=== PATIENT | male | born 1965 | race African-American/Black ===

== ENCOUNTER 2016-08-04 19:33 | Emergency (ER) | payer MEDICAID ==
[2015-10-31 07:28] VITALS: BMI 37.0
[~2016-08-04 19:33] MED LIST: BAYER CHEWABLE81 MG PO; BETAPACE 120 M120 MG PO; BRILINTA90 MG PO; COREG6.25 MG PO; DIABETA5 MG PO; DUONEB 2.5-0.5 M3 ML; ELIQUIS2.5 MG PO; FUROSEMIDE20 MG PO; GLUCOPHAGE1000 MG PO; HYDROCODONE-APA1 TAB PO; INVOKANA100 MG PO; KLOR-CON 88 MEQ PO; LIPITOR40 MG PO; LISINOPRIL10 MG PO; NEURONTIN 400400 MG PO; PLAVIX75 MG PO; PRAVACHOL40 MG PO; VASERETIC 10-251 TAB PO; VASOTEC20 MG PO
== END 2016-08-04 20:40 | disposition home or self-care (01) ==
LOC: D.ER 19:33
DX: S39.012A Strain of muscle, fascia and tendon of lower back, initial encounter (principal); X58.XXXA Exposure to other specified factors, initial encounter; Y93.89 Activity, other specified; Y92.89 Other specified places as the place of occurrence of the external cause; I50.9 Heart failure, unspecified; E11.9 Type 2 diabetes mellitus without complications; I10 Essential (primary) hypertension

== ENCOUNTER 2016-11-20 20:03 | Emergency (ER) | payer MEDICAID ==
[2015-10-31 07:28] VITALS: BMI 37.0
== END 2016-11-20 22:15 | disposition home or self-care (01) ==
LOC: D.ER 20:03
DX: M25.562 Pain in left knee (principal); I50.9 Heart failure, unspecified; E11.9 Type 2 diabetes mellitus without complications; I10 Essential (primary) hypertension

== ENCOUNTER 2016-11-28 21:49 | Emergency (ER) | payer MEDICAID ==
[2015-10-31 07:28] VITALS: BMI 37.0
== END 2016-11-28 23:19 | disposition home or self-care (01) ==
LOC: D.ER 21:49
DX: M17.12 Unilateral primary osteoarthritis, left knee (principal); M25.562 Pain in left knee; I50.9 Heart failure, unspecified; E11.9 Type 2 diabetes mellitus without complications; I10 Essential (primary) hypertension

== ENCOUNTER → 2016-12-25 21:21 | Outpatient (CLI) | payer MEDICAID ==
[2015-10-31 07:28] VITALS: BMI 37.0
== END | disposition home or self-care (01) ==
LOC: D.LABREF 21:21
DX: M17.12 Unilateral primary osteoarthritis, left knee (principal); Z11.8 Encounter for screening for other infectious and parasitic diseases

== ENCOUNTER 2017-01-13 10:00 | Inpatient (IN) | payer MEDICAID ==
[~2017-01-13 10:00] MED LIST changes: -FUROSEMIDE20 MG PO; +LASIX20 MG PO
[2017-01-13 11:31] LABS: BASOPHILS 0.2 % (0-2); EOSINOPHILS 1.5 % (0-7); HEMATOCRIT 36.7 % (42.0-54.0); HEMOGLOBIN 11.8 g/dL (13.5-17.5); IMMATURE GRANULOCYTES 0.2 % (0-5); LYMPHOCYTES 28.8 % (15-50); MCH 26.6 pg (26.0-34.0); MCHC 32.2 g/dL (31.0-37.0); MCV 82.8 fL (80.0-100.0); MONOCYTES 5.9 % (2-11); NEUTROPHILS 63.4 % (40-80); RBC 4.43 10x6/uL (4.20-6.10); RDW 15.1 % (11.5-14.5); WBC 6.1 10x3/uL (4.8-10.8)
[2017-01-13 11:35] LABS: PLATELET COUNT 213 10x3/uL (130-400)
[2017-01-13 11:36] LABS: APPEARANCE CLEAR (CLEAR); COLOR YELLOW (YELLOW); GLUCOSE 1000 mg/dL (NEGATIVE); NITRITE NEGATIVE (NEGATIVE); PROTEIN NEGATIVE (NEGATIVE); SPECIFIC GRAVITY 1.015 (1.005-1.020)
[2017-01-13 11:37] LABS: BILIRUBIN NEGATIVE (NEGATIVE); KETONE NEGATIVE (NEGATIVE); UROBILINOGEN NORMAL (NORMAL)
[2017-01-13] MEDS ORDERED: BETAPACE 80 MG80 MG PO (11:42)
[2017-01-13 11:43] LABS: APTT 29.2 SECONDS (22.8-39.4); INR 1.04 (0.85-1.17); PROTIME 13.5 SECONDS (11.6-15.0)
[2017-01-13] MEDS ORDERED: ZANAFLEX4 MG PO (11:45)
[2017-01-13 12:03] LABS: ANION GAP 15.7 mmol/L (8-16); CALCIUM 9.6 mg/dL (8.5-10.1); CARBON DIOXIDE 28.6 mmol/L (21.0-32.0); CREATININE - SERUM 1.4 mg/dL (0.6-1.3); POTASSIUM - SERUM 4.3 mmol/L (3.5-5.1)
[2017-01-18] MEDS ORDERED: OXYCONTIN10 MG PO (07:30)
[2017-01-18 07:33] VITALS: BP 147/78; BMI 37.5
--- NOTE | 2017-01-18 10:30 | NUR ---
0800 BLOOD SUGAR CHECKED AND RESULTED 335. THEREFORE IT WAS REPEATED AND RESULTED 330. ANESTHESIA NOTIFIED AT THIS TIME. INSULIN TO BE GIVEN.
--- NOTE | 2017-01-18 10:31 | NUR ---
0840 RECHECKED BLOOD SUGAR AT THIS TIME. RESULT WAS 275. DR. MELÉNDEZ NOTIFIED AND NO INTERVENTIONS NEEDED AT THIS TIME. WILL CONTINUE TO MONITOR.
[2017-01-18 12:22] VITALS: BP 142/68
--- NOTE | 2017-01-18 12:24 | NUR ---
RECIEVED TO ROOM 2209 VIA BED FROM RECOVERY ROOM S/P TOTAL LEFT KNEE REPLACEMENT PER DR JASON PT AROUSES TO VERBAL STIMULI. VS WNL ORIENTED TO ROOM AND CL SYSTEM. SDC TO RIGHT LEG APPLIED AND FUNCTIONAL BED ALARM ON FOR GLORY
[2017-01-18 12:33] VITALS: BP 142/68; BMI 37.5
--- NOTE | 2017-01-18 14:44 | OP ---
PATIENT NAME: HEIDI GAGNON MEDICAL RECORD: [id number] :67 LOCATION:D.[facility] ADMISSION DATE:01/18/17 SURGEON: CANDY JASON MD DATE OF OPERATION: 01/18/2017 PREOPERATIVE DIAGNOSIS: Degenerative arthritis of the left knee. POSTOPERATIVE DIAGNOSIS: Degenerative/inflammatory arthritis of the left knee. PROCEDURE: Left total knee arthroplasty. SURGEON: Candy Jason MD ANESTHESIA: General. INTRAOPERATIVE COMPLICATIONS: None. SUMMARY OF PATHOLOGIC FINDINGS: The patient had a combination of both severe inflammatory as well as degenerative arthritis with findings that could be consistent with pseudogout. IMPLANTS USED: [employer] triathlon total knee arthroplasty system, size 5 distal femur, non-polyethylene insert, 5 tibial baseplate, and a 36 patellar component. OPERATIVE SUMMARY IN DETAIL: After obtaining the appropriate orthopedic surgery consent as well as anesthetic consultation, evaluation and clearance, the patient was brought to the operating room and placed on the operating room table in supine position. After adequate general laryngeal mask airway was administered, tourniquet was placed about the proximal aspect of the left lower extremity. Left lower extremity was then prepped and draped in routine sterile fashion. Leg was elevated, exsanguinated, and tourniquet inflated to 350 mmHg. Routine midline incision was taken down for paramedian arthrotomy. Patella was everted, findings above were noted. Copious amounts of the pure white caseous type material were removed from about the patella and on the lateral aspect of the medial and lateral gutter. Soft tissue excision was done in the usual fashion. Intramedullary guide hole was created for intramedullary guided distal femoral cut. Distal femoral cut was made. This was followed by complete exposure of the proximal tibia. Soft tissue excision was finished and then the proximal tibia was repaired with a guide hole for intramedullary guided cutting. The proximal tibia was cut. Measurements were taken. Chamfer cuts were made on the distal femur. Having completed this, trials were put into place, taken through range of motion and found to be stable in all planes corresponding to the above-mentioned final implants. Final distal femoral and proximal tibial preparations were made. This was followed by excision of the articular aspect of the patella for patellar resurfacing. Final patellar resurfacing preparations were made. At this point, the knee was irrigated in pulsatile lavage fashion to clear the knee of all debris. Final components were cemented into place. All excess cement was removed. After the cement was allowed to harden, the knee was taken through range of motion and found to be stable in all planes. Paramedian arthrotomy was closed with #2 Ethibond, followed by #1 Vicryl, 2-0 Vicryl and skin austin. Sterile dressings were applied. Tourniquet was deflated. The patient was awakened, taken to recovery room in stable condition. All final needle and sponge counts were correct. TRANSINT:[id number] Voice Confirmation ID: [id number] DOCUMENT ID: [id number] OPERATIVE REPORT [id number] HEIDI GAGNON MD, CANDY RHODES at 1444 CC: [id number] DICTATION DATE: 01/18/17 1131 SALVAGER: 01/18/17 1153 ADM IN [facility] [address] [id number]
--- NOTE | 2017-01-18 16:40 | NUR ---
PT RESTING WELL IN BED ROUSES TO VERBAL STIMULI NO DISTRESS
--- NOTE | 2017-01-18 18:19 | NUR ---
CPM IN PLACE PT REQUESTED AND RECIEVED NORCO PER ORDER WILL MONITOR
--- NOTE | 2017-01-18 19:13 | NUR ---
PT IS LYIN IN BED WITH HOB AT 25 DEGREES. PT STATED THAT KNEE IS HURTING, PT LEFT LEG IS IN CPM MACHINE BUT MACHINE IS NOT STRAIGHT AND LEG WAS NOT ALIGNED, PT KNEE WAS TURNED SIDEWAYS, USED TOWEL TO BRACE KNEE AND KEEP STRAIGHT AND HAD ASSISTANCE PULLING PATIENT UP IN BED. PT STATED FELT A LITTLE BETTER, DAY NURSE JUST ADMINISTERED PAIN MED WILL CHECK BACK IN 2 HOURS. BED IS IN LOW POSITION, CALL LIGHT IN REACH PT SPOUSE AT BEDSIDE
[2017-01-18 22:27] VITALS: BP 141/78
[2017-01-19] VITALS: BP 153/75
--- NOTE | 2017-01-19 02:00 | NUR ---
PT RESTING IN BED WITH NO DISTRESS. RESPIRATIONS EVEN AND UNLABORED. SIDE RAILS X 2. BED IS LOW. CALL LIGHT WITHIN REACH.
[2017-01-19 04:00] VITALS: BP 140/83
[2017-01-19 04:07] LABS: BASOPHILS 0.1 % (0-2); EOSINOPHILS 1.1 % (0-7); HEMATOCRIT 32.3 % (42.0-54.0); HEMOGLOBIN 10.4 g/dL (13.5-17.5); IMMATURE GRANULOCYTES 0.1 % (0-5); LYMPHOCYTES 13.6 % (15-50); MCH 26.4 pg (26.0-34.0); MCHC 32.2 g/dL (31.0-37.0); MEAN PLATELET VOLUME 9.2 fL (7.4-10.4); MONOCYTES 10.6 % (2-11); NEUTROPHILS 74.5 % (40-80); PLATELET COUNT 183 10x3/uL (130-400); RBC 3.94 10x6/uL (4.20-6.10)
[2017-01-19 04:54] LABS: ALBUMIN 3.1 g/dL (3.4-5.0); ANION GAP 12.3 mmol/L (8-16); BILIRUBIN - TOTAL 0.55 mg/dL (0.2-1.3); CALCIUM 9.3 mg/dL (8.5-10.1); CARBON DIOXIDE 28.4 mmol/L (21.0-32.0); CREATININE - SERUM 1.5 mg/dL (0.6-1.3); POTASSIUM - SERUM 4.7 mmol/L (3.5-5.1); PROTEIN - SERUM 8.5 g/dL (6.4-8.2)
--- NOTE | 2017-01-19 07:45 | NUR ---
PT ASSESSMENT COMPLETE NO DISTRESS NOTED VOICES ALL NEEDS OT STAFF PT WITH CALL ANNEMARIE INREACH DRESSING TO LEFT KNEE CDI
[2017-01-19 08:34] VITALS: BP 147/79
--- NOTE | 2017-01-19 09:50 | NUR ---
PT RESTING IN CHAIR AT BEDSIDE NO DISTRESS NOTED FAMILY AT SIDE
[2017-01-19 11:45] VITALS: BP 145/86
--- NOTE | 2017-01-19 12:45 | NUR ---
PT UP AMBULATING WITH THERAPY VAGAL RESPONSE NOTED SEATED TO CHAIR AND PT DIAPHORESIS SLOWED AND BREATHING REGULATED RETURNED TO BED PER THERAPY STAFF
--- NOTE | 2017-01-19 15:59 | NUR ---
Patient Name: HEIDI GAGNON Admission Status: Elective Accout number: [id number] Admission Date: 01-18-2017 : 1965 Admission Diagnosis: Attending: CANDY JASON Current LOS: 1 Anticipated DC Date: Planned Disposition: Home with Home Health Primary Insurance: [place] [employer] [facility] Discharge Planning Comments: CM met with patient and girlfriend (Nena) to assess discharge planning needs. Patient stated that he is partial dependent with his ADL's, he needs assistance with his bathing. He stated that Nena helps him. Patient has a cane but will need a walker at discharge. CM will set that up prior to discharge. Patient would like to uses [facility] for PT. CM will set that up as well. Patient does not have any stairs to enter in his home. CM will continue to follow and assist with discharge planning needs, PCP: Blake gross Grand Nena Varghese ([phone]) Veterinary Meat Inspector: Lizette Sims * Is the patient Alert and Oriented? Yes 0 * How many steps to enter\exit or inside your home? 0 0 * PCP BLAKE 0 * Pharmacy [facility] 0 * Preadmission Environment Home with Family 0 * ADLs Partial Dependent 0 * Partial ADLs (Assistance needed) Bathing 0 * Equipment Cane 0 * List name and contact numbers for known caregivers / representatives who currently or will assist patient after discharge: NENA VARGHESE [phone] * Community resources currently utilized None 0 * Additional services required to return to the preadmission environment? Yes 0 * Can the patient safely return to the preadmission environment? Yes 0 * Has this patient been hospitalized within the prior 30 days at any hospital? No 0 Grand Total: 0
[2017-01-19 16:07] VITALS: BP 125/75
--- NOTE | 2017-01-19 18:45 | NUR ---
PT CPM IN PLACE PER STAFF ASSIST.
--- NOTE | 2017-01-19 19:33 | NUR ---
PT IS LYING IN BED WITH CPM MACHINE ON, STATED HAD WALKED WITH PT TODAY BUT THEN GOT DIZZY, SP STATED PT HAD A SLIGHT FEVER, PT STATED PAIN AT A 10, LAST PAIN MED WAS GIVEN AT 6 ADVISED WOULD HAVE TO WAIT A BIT LONGER BEFORE NEXT DOSE CAN BE ADMINISTERED. PT BED IN LOW POSITION CALL LIGHT IN REACH, NO SIGNS OF DISTRESS, CONTINUE WITH CARE PLAN
[2017-01-19 20:00] VITALS: BP 133/66
[2017-01-20] VITALS: BP 125/64
--- NOTE | 2017-01-20 00:28 | NUR ---
MARCIAL HAMILTON CAME TO INOFRM ME PT TEMP IS 101. GAVE PT TYLENOL 650MG, REASSESS PT TEMP IN 30MINUTES.
--- NOTE | 2017-01-20 02:00 | NUR ---
PT IN BED WITH NO DISTRESS. RESPIRATIONS EVEN AND UNLABORED. SIDE RAILS X 2. BED LOW. CALL LIGHT IN REACH.
--- NOTE | 2017-01-20 02:21 | NUR ---
RECHECKED PT TEMP AND PT IS STILL RUNNING SLIGHT FEVER OF 100.3, PLACED COLD RAG ON PT'S HEAD
[2017-01-20 04:57] LABS: BASOPHILS 0.1 % (0-2); EOSINOPHILS 1.9 % (0-7); HEMATOCRIT 30.2 % (42.0-54.0); HEMOGLOBIN 9.6 g/dL (13.5-17.5); IMMATURE GRANULOCYTES 0.3 % (0-5); LYMPHOCYTES 18.4 % (15-50); MCH 26.2 pg (26.0-34.0); MCHC 31.8 g/dL (31.0-37.0); MCV 82.5 fL (80.0-100.0); MEAN PLATELET VOLUME 9.1 fL (7.4-10.4); MONOCYTES 9.3 % (2-11); PLATELET COUNT 172 10x3/uL (130-400); RBC 3.66 10x6/uL (4.20-6.10); RDW 14.8 % (11.5-14.5); WBC 7.6 10x3/uL (4.8-10.8)
[2017-01-20 05:08] LABS: CALCIUM 9.3 mg/dL (8.5-10.1); CARBON DIOXIDE 29.9 mmol/L (21.0-32.0); CREATININE - SERUM 1.8 mg/dL (0.6-1.3); POTASSIUM - SERUM 4.9 mmol/L (3.5-5.1)
--- NOTE | 2017-01-20 07:14 | NUR ---
LETHARGIC, BUT AROUSABLE AT THIS TIME. OXYGEN ON 2L VIA NC. ENCOURAGED USE OF INCENTIVE SPIROMETER. BED ALARM AND CPM ON. SRX2 WITH BED IN LOWEST POSITION WITH WHEELS LOCKED. CALL LIGHT IN REACH, WILL CONTINUE WITH PLAN OF CARE.
[2017-01-20 07:53] VITALS: BP 104/55
--- NOTE | 2017-01-20 08:42 | NUR ---
SCHEDULED MEDICATIONS ADMINISTERED AT THIS TIME. TAKEN WITHOUT DIFFICULTY. INCENTIVE SPIROMETER IN USE WITH 2,000ML OF INSPIRATORY VOLUME. CALL LIGHT IN REACH, WILL CONTINUE WITH PLAN OF CARE.
--- NOTE | 2017-01-20 09:17 | NUR ---
PRN PERCOCET ADMINISTERED AT THIS TIME.
[2017-01-20 12:00] VITALS: BP 74/45
--- NOTE | 2017-01-20 12:04 | NUR ---
BP 74/45 AND HEART RATE 110. 500ML FLUID BOLUS INITIATED PER DR LOZANO'S ORDER.
--- NOTE | 2017-01-20 12:50 | NUR ---
FLUID BOLUS COMPLETE AT THIS TIME AND BP 104/56 AND HEART RATE 110.
--- NOTE | 2017-01-20 14:20 | NUR ---
PRN PERCOCET-5 ADMINISTERED FOR PAIN. SPOKE WITH DARRIN COTTON ABOUT DECREASING DOSE DUE TO LETHARGY.
[2017-01-20 16:35] VITALS: BP 117/69
--- NOTE | 2017-01-20 18:37 | NUR ---
COUGHED UP LARGE AMOUNT OF THICK, YELLOW/TANNISH PHLEGM.
[2017-01-20 20:00] VITALS: BP 112/60
--- NOTE | 2017-01-21 01:21 | NUR ---
UPON ENTERING ROOM, PATIENT RESTING QUIETLY WITH EYES CLOSED. NO SIGNS OF DISTRESS NOTED. PATIENT HAS A SHEET OVER HIM, NO BLANKET. CHECKED TEMPERATURE, 101.3 ORALLY. ENCOURAGED PATIENT TO USE INCENTIVE SPIROMETER.
[2017-01-21 04:00] VITALS: BP 148/81
--- NOTE | 2017-01-21 05:03 | NUR ---
CPM ON LEFT LEG, 50 DEGREE ANGLE.
--- NOTE | 2017-01-21 07:10 | NUR ---
AWAKE AND ALERT AT THIS TIME WITH RESPIRATIONS EVEN AND NON LABORED. AT BEDSIDE. CPM AND SCD'S ON AND IN WORKING ORDER. CALL LIGHT IN REACH, WILL CONTINUE WITH PLAN OF CARE.
[2017-01-21 08:14] VITALS: BP 113/65
[2017-01-21 08:36] LABS: BASOPHILS 0.1 % (0-2); HEMATOCRIT 27.5 % (42.0-54.0); HEMOGLOBIN 8.9 g/dL (13.5-17.5); IMMATURE GRANULOCYTES 0.4 % (0-5); LYMPHOCYTES 17.9 % (15-50); MCH 26.5 pg (26.0-34.0); MCHC 32.4 g/dL (31.0-37.0); MCV 81.8 fL (80.0-100.0); MEAN PLATELET VOLUME 9.2 fL (7.4-10.4); MONOCYTES 7.3 % (2-11); NEUTROPHILS 72.3 % (40-80); PLATELET COUNT 191 10x3/uL (130-400); RBC 3.36 10x6/uL (4.20-6.10); RDW 14.7 % (11.5-14.5); WBC 7.8 10x3/uL (4.8-10.8)
--- NOTE | 2017-01-21 08:47 | NUR ---
SCHEDULED MEDICATIONS ADMINISTERED WELL PRN ULTRAM FOR PAIN. IV TO RIGHT HAND PATENT. REMAINS AT BEDSIDE AND CALL LIGHT IN REACH. WILL CONTINUE WITH PLAN OF CARE.
[2017-01-21 08:49] LABS: ALBUMIN 2.8 g/dL (3.4-5.0); BILIRUBIN - TOTAL 0.7 mg/dL (0.2-1.3); CALCIUM 9.4 mg/dL (8.5-10.1); CARBON DIOXIDE 30.1 mmol/L (21.0-32.0); CREATININE - SERUM 1.9 mg/dL (0.6-1.3); POTASSIUM - SERUM 5.1 mmol/L (3.5-5.1); PROTEIN - SERUM 8.2 g/dL (6.4-8.2)
--- NOTE | 2017-01-21 12:16 | NUR ---
REMAINS UP IN CHAIR. DENIES NEEDS AT THIS TIME. CALL LIGHT IN REACH, WILL CONTINUE WITH PLAN OF CARE.
[2017-01-21 12:45] VITALS: BP 133/79
--- NOTE | 2017-01-21 14:47 | NUR ---
PRN PERCOCET AND TORADOL ADMINISTERED TOGETHER AT THIS TIME FOR PAIN 10/10 PER ORDERS FROM LULA HARDY APN. PT IN TEARS WITH PAIN. ICE PACK APPLIED TO LEFT KNEE.
[2017-01-21 16:25] VITALS: BP 146/85
[2017-01-21 20:00] VITALS: BP 145/84
[2017-01-22] VITALS: BP 118/73
[2017-01-22 04:00] VITALS: BP 167/78
--- NOTE | 2017-01-22 07:20 | NUR ---
AWAKE AND ALERT. COMPLAINS THAT KNEE PAIN IS 10/10 AND RIGHT KNEE HURTS WELL. FIANCE AT BEDISDE. CALL LIGHT IN REACH AND BED ALARM ON. PT REFUSES CPM HE SAYS THAT IT "DOES NOT FIT PROPERLY."
--- NOTE | 2017-01-22 07:32 | NUR ---
PRN TRAMADOL ADMINISTERED AND ICE PACK APPLIED TO LEFT KNEE.
[2017-01-22 08:07] VITALS: BP 179/96
[2017-01-22 08:17] LABS: BASOPHILS 0.3 % (0-2); HEMATOCRIT 29.4 % (42.0-54.0); HEMOGLOBIN 9.8 g/dL (13.5-17.5); IMMATURE GRANULOCYTES 0.5 % (0-5); LYMPHOCYTES 17.8 % (15-50); MCH 26.8 pg (26.0-34.0); MCHC 33.3 g/dL (31.0-37.0); MCV 80.3 fL (80.0-100.0); MEAN PLATELET VOLUME 8.9 fL (7.4-10.4); MONOCYTES 11.2 % (2-11); NEUTROPHILS 68.2 % (40-80); PLATELET COUNT 216 10x3/uL (130-400); RBC 3.66 10x6/uL (4.20-6.10); RDW 14.6 % (11.5-14.5); WBC 6.6 10x3/uL (4.8-10.8)
[2017-01-22 08:42] LABS: ALBUMIN 2.8 g/dL (3.4-5.0); BILIRUBIN - TOTAL 0.61 mg/dL (0.2-1.3); CALCIUM 10.1 mg/dL (8.5-10.1); CARBON DIOXIDE 27.5 mmol/L (21.0-32.0); PROTEIN - SERUM 8.9 g/dL (6.4-8.2)
[2017-01-22 08:47] LABS: ANION GAP 15.8 mmol/L (8-16); CREATININE - SERUM 1.4 mg/dL (0.6-1.3); POTASSIUM - SERUM 4.3 mmol/L (3.5-5.1)
--- NOTE | 2017-01-22 08:56 | NUR ---
PRN PERCOCET ADMINISTERED AT THIS TIME FOR PAIN 10/.
[2017-01-22 11:55] VITALS: BP 173/92
--- NOTE | 2017-01-22 12:14 | NUR ---
PRN PERCOCET ADMINISTERED AT THIS TIME FOR PAIN 01/26. DOSE INCREASED PER ORDER.
[2017-01-22 16:00] VITALS: BP 153/74
--- NOTE | 2017-01-22 18:03 | NUR ---
REFUSING CPM AT THIS TIME.
--- NOTE | 2017-01-22 19:15 | NUR ---
RECEIVED CARE FROM DAY NURSE. PT IN BED. REPORTS NO NEEDS. CALL LIGHT AT SIDE. IV TO RIGHT HAND SL. BSC AND WALKER WITHIN REACH.
[2017-01-22 20:00] VITALS: BP 178/89
--- NOTE | 2017-01-22 21:03 | NUR ---
C/O OF IV IN RIGHT HAND NOT ANY GOOD AND NEEDS TO COME OUT. DC'D WITH TIP INTACT. WILL RESITE IN AM FOR IV ROCEPHIN.
--- NOTE | 2017-01-22 23:40 | NUR ---
ASSESSED, PT IS AWAKE WATCHING TV. HE HAS HAD KNEE SURGERY AND THE CPM MACHINE IS AT THE BEDSIDE. MEDS TAKEN ORDERED. THE BED IS LOW, RAILS UP X'S 2 WITH THE CALL LIGHT AT HAND.
[2017-01-23] VITALS: BP 137/81
--- NOTE | 2017-01-23 01:17 | NUR ---
PT RESTING QUITLY. RESP EVEN AND UNLABORED. COMPANY AT SIDE. CALL LIGHT AT SIDE. WILL CONTINUE TO MONITOR.
[2017-01-23 04:00] VITALS: BP 157/84
--- NOTE | 2017-01-23 05:59 | NUR ---
IV SITED TO LEFT WRIST. 22 GAGUGE X1 STICK WITH GOOD BLOOD RETURN NOTED.
--- NOTE | 2017-01-23 07:00 | NUR ---
PT REC'D FROM [facility]. RESTING IN BED WITH FAMILY MEMBER AT BEDSIDE. AAOX4. NO CURRENT COMPLAINTS OF PAIN. DRESSING TO L KNEE CDI. +1 PITTING EDEMA NOTED BELOW BANDAGE. LUNG SOUNDS CLEAR AND EQUAL BILAT. REGULAR HEART RATE AND RHYTHM. BED LOW, CALL LIGHT IN REACH, DENIES NEEDS. CPOC.
[2017-01-23 08:07] VITALS: BP 162/85
--- NOTE | 2017-01-23 08:35 | NUR ---
MORNING MEDS PASSED AT THIS TIME. PRN PAIN MEDICATION ADMINISTERED DUE TO PT COMPLAINTS OF 8/10 R KNEE PAIN. WILL REASSESS. GISSELLE COTTON, AT BEDSIDE DISCUSSING DISCHARGE INSTRUCTIONS. PIV TO L WRIST FLUSHED WITH 10 CC'S OF SALINE. NO COMPLAINTS OF PAIN AND NO SWELLING NOTED TO SITE. BED LOW, CALL LIGHT IN REACH, DENIES NEEDS. CPOC.
[2017-01-23] MEDS ORDERED: ELIQUIS2.5 MG PO (08:43)
[2017-01-23] MEDS ORDERED: PERCOCET 10/3251 TA1 PO (08:43)
[2017-01-23] MEDS ORDERED: AMOXICILLIN500 M1 PO (08:44)
--- NOTE | 2017-01-23 11:14 | NUR ---
LATE ENTRY 0915 PATIENT FOR DISCHARGE TO HOME TODAY. CM REVIEWED WEEKDAY CM NOTES. TC TO [employer] [facility] TO VERIFY REFERRAL. SPOKE WITH THE ON-CALL NURSE, DALJIT. SHE DID NOT HAVE THE PATIENT ON HER LIST. SHE STATED SHE WOULD F/U WITH HER SHERIFF DETECTIVE AND CALL BACK. CM RECEIVED CB WITH REQUEST TO FAX THE REFERRAL. FAXED H/P, OPERATIVE REPORT, LABS, PHYSICAL THERAPY NOTES AND DISCHARGE INSTRUCTIONS. TC TO [facility] MED[facility] RESPIRATORY. SPOKE WITH VIVI REGARDING DME ORDERS. CM OBTAINED ORDERS FOR CPM AND WALKER W/ WHEELS. FAXED FACE SHEET, MD ORDER AND OP REPORT TO [phone]. HEIGHT AND WEIGHT PROVIDED ON FACE SHEET. CM SPOKE WITH THE PATIENT AT THE BEDSIDE. ADVISED HIM THAT THE HOME HEALTH WOULD VISIT ON WEDNESDAY AND SHOULD CALL BEFORE THEY COME. ADVISED [facility] WILL DELIVER HIS WALKER TO THE BEDSIDE. THEY WILL DISCUSS WHERE HE WANTS CPM DELIVERED. SPOKE WITH PHYSICAL THERAPY. THE PATIENT AMBULATED IN THE MEIER W/ THE THERAPIST. RECEIVED TC FROM [facility] Fitzpatrick[facility] TRANSFERED HIS CALL TO THE PATIENT'S ROOM SO THAT HE COULD SPEAK WITH THE PATIENT AND HIS CAREGIVER , CYRIL VARGHESE. WALKER DELIVERERD TO THE BEDSIDE. CM ALSO ADVISED MS VARGHESE THAT HOME HEALTH WILL VISIT ONDAY. THEY ARE BOTH COMFORTABLE WITH THAT PLAN. NO ADDITIONAL NEEDS VOICED.
--- NOTE | 2017-01-23 11:41 | NUR ---
PT AOX4 RESP EVEN AND NONLABORED PT HERE FOR KNEE SURGERY FOR THIS VISIT PT DENIES NEEDS AT THIS TIME SRX2 BED AT LOWEST SETTING CALL LIGHT WITHIN REACH WILL CONTINUE TO MONITOR
--- NOTE | 2017-01-23 11:55 | NUR ---
DISCHARGE INSTRUCTIONS REVIEWED AT THIS TIME. NO QUESTIONS OR CONCERNS VOICED. PIV TO L WRIST DC'D WITH CATHERTER INTACT. DRESSING TO LEFT KNEE CHANGED PER ORDERS. ESCORTED OUT VIA WC.
== END 2017-01-23 11:57 | disposition home health service (06) | DRG 470 ==
LOC: D.SDCHOLD 10:00 → D.MS 01-18 05:11 → D.SDCHOLD 01-18 09:15 → D.MS 01-18 12:06
PROVIDERS: Family Medicine; ADMIT Orthopaedic Surgery
PROC: 0SRD0J9 Replacement of Left Knee Joint with Synthetic Substitute, Cemented, Open Approach (ICD-10-PCS; principal; 2017-01-18 09:15)
DX: M17.12 Unilateral primary osteoarthritis, left knee (principal); E11.65 Type 2 diabetes mellitus with hyperglycemia; E11.40 Type 2 diabetes mellitus with diabetic neuropathy, unspecified; I10 Essential (primary) hypertension; I25.10 Atherosclerotic heart disease of native coronary artery without angina pectoris; R50.9 Fever, unspecified; R05 Cough

== ENCOUNTER 2017-03-23 11:40 | Emergency (ER) | payer MEDICAID ==
[~2017-03-23 11:40] MED LIST changes: +AMOXICILLIN500 M1 PO; +BETAPACE 80 MG80 MG PO; +OXYCONTIN10 MG PO; +PERCOCET 10/3251 TA1 PO; +ZANAFLEX4 MG PO
== END 2017-03-23 13:27 | disposition home or self-care (01) ==
LOC: D.ER 11:40
DX: F33.9 Major depressive disorder, recurrent, unspecified (principal); E11.9 Type 2 diabetes mellitus without complications; I50.9 Heart failure, unspecified; I10 Essential (primary) hypertension

== ENCOUNTER 2017-06-27 15:13 | Inpatient (IN) | payer MEDICAID ==
[~2017-06-27] VITALS: Ht 177.8 cm; Wt 114.6 kg
[2017-06-27 16:01] LABS: BASOPHILS 0.1 % (0-2); EOSINOPHILS 0 % (0-7); HEMOGLOBIN 11.8 g/dL (13.5-17.5); IMMATURE GRANULOCYTES 0.1 % (0-5); LYMPHOCYTES 19.9 % (15-50); MCH 25.2 pg (26.0-34.0); MCHC 31.9 g/dL (31.0-37.0); MCV 78.9 fL (80.0-100.0); MONOCYTES 9.5 % (2-11); NEUTROPHILS 70.4 % (40-80); RBC 4.69 10x6/uL (4.20-6.10); RDW 15.9 % (11.5-14.5); WBC 7.9 10x3/uL (4.8-10.8)
[2017-06-27 16:03] LABS: PLATELET COUNT 135 10x3/uL (130-400)
[2017-06-27 16:14] LABS: ALBUMIN 4.2 g/dL (3.4-5.0); ANION GAP 13.6 mmol/L (8-16); BILIRUBIN - TOTAL 0.9 mg/dL (0.2-1.3); CALCIUM 10.1 mg/dL (8.5-10.1); CARBON DIOXIDE 26.3 mmol/L (21.0-32.0); CREATININE - SERUM 1.2 mg/dL (0.6-1.3); POTASSIUM - SERUM 3.9 mmol/L (3.5-5.1); PROTEIN - SERUM 9.8 g/dL (6.4-8.2)
[2017-06-28 00:30] VITALS: BP 110/54; BP 129/72
[2017-06-28 04:30] VITALS: BP 134/73
[2017-06-28 05:20] LABS: BASOPHILS 0.3 % (0-2); EOSINOPHILS 0.4 % (0-7); HEMOGLOBIN 10.7 g/dL (13.5-17.5); IMMATURE GRANULOCYTES 0.1 % (0-5); LYMPHOCYTES 20.3 % (15-50); MCH 24.9 pg (26.0-34.0); MCHC 31.5 g/dL (31.0-37.0); MCV 79.1 fL (80.0-100.0); MEAN PLATELET VOLUME 8.8 fL (7.4-10.4); MONOCYTES 12.1 % (2-11); NEUTROPHILS 66.8 % (40-80); PLATELET COUNT 141 10x3/uL (130-400); RDW 15.9 % (11.5-14.5); WBC 7.9 10x3/uL (4.8-10.8)
[2017-06-28 05:50] LABS: CALC OSMOLALITY 276 mosm/kg (275-300); CALCIUM 8.9 mg/dL (8.5-10.1); CARBON DIOXIDE 26.2 mmol/L (21.0-32.0); CHLORIDE - SERUM 100 mmol/L (98-107); CREATININE - SERUM 1.1 mg/dL (0.6-1.3); GLUCOSE 183 mg/dL (74-106); POTASSIUM - SERUM 3.9 mmol/L (3.5-5.1); SODIUM 135 mmol/L (136-145); UREA NITROGEN 17 mg/dL (7-18); eGFR NON AFRICAN AMERICAN 75 mL/min (90-120)
[2017-06-28 08:13] VITALS: BP 142/87
[2017-06-28 11:55] VITALS: BMI 35.1
[2017-06-28 12:24] VITALS: BP 144/80
[2017-06-28 15:45] VITALS: BP 143/77
[2017-06-28 20:29] VITALS: BP 121/73
[2017-06-29 01:15] VITALS: BP 121/66
[2017-06-29 04:36] VITALS: Ht 177.8 cm; Wt 114.6 kg
[2017-06-29 05:21] VITALS: BP 161/84
[2017-06-29 08:01] VITALS: BP 142/81
[2017-06-29 08:38] LABS: HEMATOCRIT 33.1 % (42.0-54.0); HEMOGLOBIN 10.5 g/dL (13.5-17.5); MCH 25.4 pg (26.0-34.0); MCHC 31.7 g/dL (31.0-37.0); MEAN PLATELET VOLUME 9.1 fL (7.4-10.4); PLATELET COUNT 157 10x3/uL (130-400); RBC 4.14 10x6/uL (4.20-6.10); RDW 15.8 % (11.5-14.5); WBC 7.6 10x3/uL (4.8-10.8)
[2017-06-29 08:54] LABS: C-REACTIVE PROTEIN 31.9 mg/dL (0.0-0.9); CALC OSMOLALITY 273 mosm/kg (275-300); CALCIUM 9.1 mg/dL (8.5-10.1); CARBON DIOXIDE 26.6 mmol/L (21.0-32.0); CHLORIDE - SERUM 98 mmol/L (98-107); POTASSIUM - SERUM 3.9 mmol/L (3.5-5.1); SODIUM 135 mmol/L (136-145); UREA NITROGEN 17 mg/dL (7-18); VANCOMYCIN - TROUGH 15.5 ug/mL (10.0-20.0); eGFR NON AFRICAN AMERICAN 84 mL/min (90-120)
[2017-06-29 08:56] LABS: GLUCOSE 132 mg/dL (74-106)
[2017-06-29 09:41] LABS: ERYTHROCYTE SEDIMENTATION RATE 86 mm/hr (0-20)
[2017-06-29 10:58] LABS: PROTEIN - BODY FLUID 5.7 G/DL
[2017-06-29 11:10] LABS: MACROPHAGES BF 2 %; NEUT - BF 91 %
[2017-06-29 11:16] VITALS: BP 148/79
[2017-06-29 17:06] VITALS: BP 154/80
[2017-06-29 20:00] VITALS: BP 137/82
[2017-06-30] VITALS (7 sets, daily range): BP systolic 110–150; BP diastolic 69–83
[2017-07-01 01:38] VITALS: BP 148/78
[2017-07-01 05:21] VITALS: BP 157/93
[2017-07-01] MEDS ORDERED: ZYLOPRIM100 MG PO (08:40)
[2017-07-01 08:45] VITALS: BP 149/86
== END 2017-07-01 15:12 | disposition home or self-care (01) | DRG 550 ==
LOC: D.ER 15:13 → D.EDHOLD 21:01 → D.M2 21:01
PROVIDERS: Emergency Medicine; Family Medicine; Orthopaedic Surgery
PROC: 0S9C3ZZ Drainage of Right Knee Joint, Percutaneous Approach (ICD-10-PCS; principal; 2017-06-27)
PROC: 0S9C3ZZ Drainage of Right Knee Joint, Percutaneous Approach (ICD-10-PCS; 2017-06-29)
DX: M00.9 Pyogenic arthritis, unspecified (principal); M10.9 Gout, unspecified; I11.0 Hypertensive heart disease with heart failure; I50.9 Heart failure, unspecified; E11.40 Type 2 diabetes mellitus with diabetic neuropathy, unspecified; M25.461 Effusion, right knee

== ENCOUNTER → 2017-10-17 12:22 | Outpatient (CLI) | payer MEDICAID ==
[~2017-10-17] VITALS: Ht 177.8 cm; Wt 113.6 kg
--- NOTE | ~2017-10-17 | HEMODYNAMI ---
PATIENT:HEIDI GAGNON MEDICAL RECORD: [id number] : 67 LOCATION:[facility] ADMISSION DATE: 10/17/17 Generatedon:10/18/20178:21 Patient name: HEIDI GAGNON Patient #: [id number] SSN: DO B: 1965 Date of study: 10/17/2017 Page: Of Hemodynamic Procedure Report Patient Data Patient Demographics First Name: HEIDI Gender: Male Last Name: CHELSI : 1965 Middle Initial: LORI Age: 52 year(s) Patient #: [id number] Race: Black Additional ID: [id number] Contact details [address]: [address] [place] [address] [address] State: [place] City: [place] Zip code: [address] Admission Admission Data Admission Date: 10/17/2017 Admission Time: 12:22 Procedure Procedure Types Cath Procedure Diagnostic Procedure LHC LHC w/Coronaries Procedure Description Procedure Date Procedure Date: 10/17/2017 Procedure Start Time: 13:13 Procedure Staff Name Function Teri Marin RT Scrub Gabriele Patel RT Monitor Ying Freedman RN Nurse Nahun Urrutia MD Performing Physician Procedure Data Cath Procedure Fluoroscopy Diagnostic fluoroscopy Total fluoroscopy Time: 1 time: 1 min min Diagnostic fluoroscopy Total fluoroscopy dose: 79 dose: 79 mGy mGy Contrast Material Contrast Material Type Amount (ml) Isovue 300 0 Entry Location Entry Primary Successful Side Size Upsize Upsize Entry Closure Succes sful Closure Location (Fr) 1 (Fr) 2 (Fr) Remarks Device Remarks Femoral Right 6 Fr artery Short Femoral Right 6 Fr vein Short Procedure Medications Medication Administration Route Dosage Atropine I.V. 2 mg Epinephrine I.V. 1 mg Epinephrine I.V. 1 mg Epinephrine I.V. 1 mg Oxygen 100 Hemodynamics Rest Pre Cath Intra NCS Post Cath Medications Time Medication Route Dose Verified Delivered Reason Notes Effecti veness by by 13:00:04 Oxygen intubated 100% on port vent 13:00:58 Atropine I.V. 2 mg Nahun Freedman RN physician 13:02:08 Epinephrine I.V. 1 mg Nahun Freedman RN physician 13:05:08 Epinephrine I.V. 1 mg Nahun Freedman RN physician 13:07:01 Epinephrine I.V. 1 mg Nahun Freedman RN physician Procedure Log Time Note 12:44:28 Gabriele FLOWER(R) sent for patient. Start room use. 12:44:30 Time tracking: Call back (After hours or weekends) 12:44:34 Plan of Care:Hemodynamics will remain stable., Cardiac rhythm will remain stable., Comfort level will be maintained., Respiratory function will remain adequate., Patient/ family verbilizes understanding of procedure., Procedure tolerated without complication., Recovers from procedure without complications.. 12:55:49 Pt brought to clinical genetics laboratory chief unresponsive and intubated with lifepack monitor in place. 12:55:50 Pt arrived emergently from ER. tranferred to table. 13:00:04 Oxygen 100% intubated on port vent was administered by ; ; 13:00:20 --------ALL STOP TIME OUT------ 13:00:24 Final Timeout: patient, procedure, and site verified with staff and physician. All members of the team are in agreement. 13:00:26 Right groin site verified by team. 13:00:35 Physical assessment completed. ASA score P 5 - A moribund patient who is not expected to survive without the operation as per Nahun Urrutia MD. 13:00:58 Atropine 2 mg I.V. was administered by Ying Freedman RN; Per physician; 13:01:47 No Pulse. CPR started. 13:02:08 Epinephrine 1 mg I.V. was administered by Ying Freedman RN; Per physician; 13:04:44 Full Disclosure recording started 13:04:44 Procedure started. 13:05:08 Epinephrine 1 mg I.V. was administered by Ying Freedman RN; Per physician; 13:05:10 A 6 Fr Short sheath was inserted into the Right Femoral artery 13:05:11 A 6 Fr Short sheath was inserted into the Right Femoral vein 13:06:42 Temporary pacer inserted 13:06:43 Temporary pacer turned on with the following settings: Rate 100, MA 10, Mode: Asynchronous. 13:07:01 Epinephrine 1 mg I.V. was administered by Ying Freedman RN; Per physician; 13:10:29 No cardiac motion with temp pacer on. No pulse. cpr stopped per dr urrutai. 13:15:24 Temporary pacer turn off 13:15:25 Temporary pacer removed 13:15:31 Procedure ended.(Physican Out) 13:27:27 Fluoroscopy time 01.00 minutes. 13:27:31 Fluoroscopy dose: 79 mGy 13:27:31 Flurop Dose total: 79 13:27:34 Contrast amount:Isovue 300 0ml. 13:57:44 End room use (Document Last) 13:58:36 Full Disclosure recording stopped Signature Audit [place] Stage Time Signature Unsigned Intra-Procedure 10/17/2017 Gabriele Patel RT(R) 1:58:31 PM RT(R) 10/18/2017 8:16:17 AM Intra-Procedure 10/18/2017 Gabriele Patel 8:20:54 AM RT(R) Signatures Monitor : Gabriele Patel RT Signature : Date : Time : [address] [address]
--- NOTE | ~2017-10-17 | HEMODYNAMI ---
PATIENT:HEIDI GAGNON MEDICAL RECORD: [id number] : 67 LOCATION:[facility] ADMISSION DATE: 10/17/17 Generatedon:10/17/201713:58 Patient name: HEIDI GAGNON Patient #: [id number] SSN: DO B: 1965 Date of study: 10/17/2017 Page: Of Hemodynamic Procedure Report Patient Data Patient Demographics First Name: HEIDI Gender: Male Last Name: CHELSI : 1965 Middle Initial: LORI Age: 52 year(s) Patient #: [id number] Race: Black Additional ID: [id number] Contact details Address: [address] [place] [address] [address] State: [place] City: [place] Zip code: [address] Admission Admission Data Admission Date: 10/17/2017 Admission Time: 12:22 Procedure Procedure Types Cath Procedure Diagnostic Procedure LHC LHC w/Coronaries Procedure Description Procedure Date Procedure Date: 10/17/2017 Procedure Start Time: 13:13 Procedure Staff Name Function Nahun Urrutia MD Performing Physician Gabriele Patel RT Monitor Ying Freedman RN Nurse Teri Marin RT Scrub Procedure Data Cath Procedure Fluoroscopy Diagnostic fluoroscopy Total fluoroscopy Time: 1 time: 1 min min Diagnostic fluoroscopy Total fluoroscopy dose: 79 dose: 79 mGy mGy Contrast Material Contrast Material Type Amount (ml) Isovue 300 0 Entry Location Entry Primary Successful Side Size Upsize Upsize Entry Closure Succes sful Closure Location (Fr) 1 (Fr) 2 (Fr) Remarks Device Remarks Femoral Right 6 Fr artery Short Femoral Right 6 Fr vein Short Procedure Medications Medication Administration Route Dosage Atropine I.V. 2 mg Epinephrine I.V. 1 mg Epinephrine I.V. 1 mg Epinephrine I.V. 1 mg Oxygen 100 Hemodynamics Rest Pre Cath Intra NCS Post Cath Medications Time Medication Route Dose Verified Delivered Reason Notes Effecti veness by by 13:00:04 Oxygen intubated 100% on port vent 13:00:58 Atropine I.V. 2 mg Nahun Freedman RN physician 13:02:08 Epinephrine I.V. 1 mg Nahun Freedman RN physician 13:05:08 Epinephrine I.V. 1 mg Nahun Freedman RN physician 13:07:01 Epinephrine I.V. 1 mg Nahun Freedman RN physician Procedure Log Time Note 12:44:28 Gabriele FLOWER(R) sent for patient. Start room use. 12:44:30 Time tracking: Call back (After hours or weekends) 12:44:34 Plan of Care:Hemodynamics will remain stable., Cardiac rhythm will remain stable., Comfort level will be maintained., Respiratory function will remain adequate., Patient/ family verbilizes understanding of procedure., Procedure tolerated without complication., Recovers from procedure without complications.. 12:55:49 Pt brought to dentures lab technician unresponsive and intubated with lifepack monitor in place. 12:55:50 Pt arrived emergently from ER. tranferred to table. no pulse. cpr started. 13:00:04 Oxygen 100% intubated on port vent was administered by ; ; 13:00:20 --------ALL STOP TIME OUT------ 13:00:24 Final Timeout: patient, procedure, and site verified with staff and physician. All members of the team are in agreement. 13:00:26 Right groin site verified by team. 13:00:35 Physical assessment completed. ASA score P 5 - A moribund patient who is not expected to survive without the operation as per Nahun Urrutia MD. 13:00:58 Atropine 2 mg I.V. was administered by Ying Freedman RN; Per physician; 13:02:08 Epinephrine 1 mg I.V. was administered by Ying Freedman RN; Per physician; 13:04:44 Full Disclosure recording started 13:04:44 Procedure started. 13:05:08 Epinephrine 1 mg I.V. was administered by Ying Freedman RN; Per physician; 13:05:10 A 6 Fr Short sheath was inserted into the Right Femoral artery 13:05:11 A 6 Fr Short sheath was inserted into the Right Femoral vein 13:06:42 Temporary pacer inserted 13:06:43 Temporary pacer turned on with the following settings: Rate 100, MA 10, Mode: Asynchronous. 13:07:01 Epinephrine 1 mg I.V. was administered by Ying Freedman RN; Per physician; 13:10:29 No pulse. cpr stopped per dr urrutia. 13:15:24 Temporary pacer turn off 13:15:25 Temporary pacer removed 13:15:31 Procedure ended.(Physican Out) 13:27:27 Fluoroscopy time 01.00 minutes. 13:27:31 Fluoroscopy dose: 79 mGy 13:27:31 Flurop Dose total: 79 13:27:34 Contrast amount:Isovue 300 0ml. 13:57:44 End room use (Document Last) Signature Audit [place] Stage Time Signature Unsigned Intra-Procedure 10/17/2017 Gabriele Patel 1:58:31 PM RT(R) Signatures Monitor : Gabriele Patel RT Signature : Date : Time : [address] [address]
--- NOTE | ~2017-10-17 | HP ---
PATIENT: HEIDI GAGNON MEDICAL RECORD: [id number] ACCOUNT: [id number] LOCATION:[facility] : 67 ADMISSION DATE: 10/17/17 HISTORY AND PHYSICAL EXAMINATION DIAGNOSES: 1. Acute inferior myocardial infarction. 2. Status post cardiac arrest. HISTORY OF PRESENT ILLNESS: Mr. Gagnon was at [facility], clutched his chest, and had an arrest. EMS was called. He was brought to the Emergency Room. He had multiple episodes of torsades requiring defibrillation. He is now intubated. His rhythm is sinus abhilash at 45 with a palpable pulse. We do not know any cardiac history. His EKG is compatible with acute inferior myocardial infarction. PHYSICAL EXAMINATION: GENERAL APPEARANCE: The patient is intubated, but not sedated. PSYCHIATRIC: Mental status, alert, normal affect. Orientation, oriented to time, place and person. EYES: Lids and conjunctiva, noninjected. No discharge, no pallor. ENT: Lips, teeth, gums, normal dentition. Oropharynx, no cyanosis, no pallor. NECK: Carotid arteries, bilateral normal upstroke, no bruits, no thrills. JUGULAR VEINS: No jugular venous pressure or distention. CERVICAL LYMPH NODES: Nontender, nonenlarged. THYROID: Not enlarged. Nontender. No nodules. LUNGS: Respiratory effort, unlabored. CHEST: Normal curvature. No thoracic deformity. No chest wall tenderness. Percussion, resonant. Auscultation, clear. No wheezes, no rales, no rhonchi. CARDIOVASCULAR: Precordial exam, nondisplaced. No heaves or pericardial thrills. Rate and rhythm, regular. Heart sounds, normal S1, normal S2. No S3, no gallop, no rub. Systolic murmur, not heard. Diastolic murmur, not heard. EXTREMITIES: No cyanosis, no edema. Peripheral pulses, full and equal in all extremities, except as noted. No bruits appreciated. ABDOMEN: Soft, nondistended. Normal aorta. No bruit. Nontender. No masses. Liver, nontender, no hepatomegaly. Spleen, nontender, no splenomegaly. MUSCULOSKELETAL: No joint tenderness. No joint swelling. No erythema. NEUROLOGICAL: Normal gait, normal strength, normal tone. SKIN: Warm and dry. OVERALL IMPRESSION: Acute inferior myocardial infarction, status post cardiac arrest. At this time, we will proceed with emergent coronary angiography and hopeful transcatheter revascularization. TRANSINT:[id number] Voice Confirmation ID: [id number] DOCUMENT ID: [id number] HISTORY AND PHYSICAL [id number] HEIDI GAGNON JEFFREY MD at 1741 CC: [id number] DICTATION DATE: 10/17/17 1259 CHOCOLATE COATER: 10/17/17 1356 DEP CLI 10/17/[address] [id number]
--- NOTE | ~2017-10-17 | OP ---
PATIENT NAME: HEIDI GAGNON MEDICAL RECORD: [id number] :67 LOCATION:[facility] ADMISSION DATE: SURGEON: DIANE SEVILLA MD DATE OF OPERATION: 10/17/2017 Mr. Gagnon was in the Emergency Room in cardiogenic shock having an acute inferior myocardial infarction. He received multiple defibrillations. He regained an organized cardiac rhythm with a palpable pulse. We brought him to the cardiac catheterization lab. Before cardiac catheterization could be performed, he became asystolic. We performed ACLS measures along with a temporary pacemaker and he never got an organized rhythm or pulse or pressure back despite ACLS measures and CPR. Cardiac catheterization was not performed. The patient at 1:10 p.m. TRANSINT:[id number] Voice Confirmation ID: [id number] DOCUMENT ID: [id number] DIANE SEVILLA MD at 1741 CC: [id number] DICTATION DATE: 10/17/17 1311 TRUCK LOADER: 10/17/17 1604 DEP CLI 10/17/17 [id number] [place] [address]
[2017-10-17 12:22] VITALS: Ht 177.8 cm; Wt 113.6 kg
[~2017-10-17 12:22] MED LIST changes: +ZYLOPRIM100 MG PO
== END | disposition home or self-care (01) ==
LOC: D.ER 12:22 → D.CATH 12:22 → EDSTATUS 13:38
DX: I21.9 Acute myocardial infarction, unspecified (principal); I46.9 Cardiac arrest, cause unspecified